=== PATIENT | female | born 1965 | race Caucasian/White ===

== ENCOUNTER 2018-06-01 09:20 | Day surgery (SDC) | payer BC ==
[~2018-06-01 09:20] MED LIST: Midazolam 1 MG/ML 2 ML SDV ONE; Propofol 200 MG/20 ML SDV ONE; fentaNYL 100 MCG/2 ML SDV ONE
[2018-06-01] MEDS ORDERED: Sodium Chloride 0.9% 1,000 ML IV SCH (09:45)
[2018-06-01 11:16] VITALS: BP 119/78
--- NOTE | 2018-06-01 12:04 | OR ---
DATE OF PROCEDURE: 06/01/2018 PROCEDURE: Colonoscopy. FINDINGS: Rectal polyp, approximately 1 cm, completely removed using hot snare. COMPLICATIONS: None. CONCILIATOR: None. PREOPERATIVE DIAGNOSIS: Screening colonoscopy. POSTOPERATIVE DIAGNOSIS: Screening colonoscopy. RISKS: Risks, benefits, alternatives, and limitations including, but not limited to infection, bleeding, and perforation were explained to the patient who wished to proceed. PROCEDURE IN DETAIL: The patient was placed in left lateral decubitus position. Digital rectal exam was performed without abnormality. The scope was introduced and advanced atraumatically to the ileocecal valve. A photo was taken. The scope was brought back to the ascending, transverse, descending colon, and retroflexed. The aforementioned polyps were identified and completely removed. No evidence of abnormal bleeding or any other masses or areas of concern. The patient tolerated the procedure well. José Manuel Swain MD /[id number]
== END 2018-06-01 11:29 | disposition home or self-care (01) ==
LOC: JP.SDS 09:20
PROVIDERS: ATTEND Surgery
DX: Z12.11 Encounter for screening for malignant neoplasm of colon (principal); D12.8 Benign neoplasm of rectum; I10 Essential (primary) hypertension; Z87.891 Personal history of nicotine dependence
CPT/HCPCS: 45385; 88305; J2250; J2704; J3010; J7030

== ENCOUNTER 2021-09-24 06:25 | Day surgery (SDC) | payer BC ==
[2021-09-24] MEDS ORDERED: Lactated Ringers 1,000 ML IV SCH (07:00)
[2021-09-24] MEDS ORDERED: Propofol 200 MG/20 ML SDV ONE (07:42)
[2021-09-24] MEDS ORDERED: Midazolam 1 MG/ML 2 ML SDV ONE (07:43)
[2021-09-24] MEDS ORDERED: fentaNYL 100 MCG/2 ML SDV ONE (07:43)
[2021-09-24 09:23] VITALS: BP 132/79; PULSE 80
== END 2021-09-24 09:30 | disposition home or self-care (01) ==
LOC: JP.SDS 06:25
PROVIDERS: ATTEND Family Medicine
DX: Z12.11 Encounter for screening for malignant neoplasm of colon (principal); I10 Essential (primary) hypertension; G47.33 Obstructive sleep apnea (adult) (pediatric); E66.01 Morbid (severe) obesity due to excess calories; Z86.010 Personal history of colon polyps; Z68.34 Body mass index [BMI] 34.0-34.9, adult
CPT/HCPCS: 45378; J2250; J2704; J3010; J7120

== ENCOUNTER 2023-01-31 18:38 | Emergency (ER) | payer BC ==
[2023-01-31] MEDS ORDERED: Ondansetron 4 MG/2 ML SDV IVPUSH ONE (19:39)
[2023-01-31] MEDS ORDERED: Sodium Chloride 0.9% 10 ML Syringe FLUSH PRN (19:39)
[2023-01-31] MEDS ORDERED: Sodium Chloride 0.9% 1,000 ML IV SCH (19:45)
[2023-01-31 19:54] LABS: BASOPHILS ABSOLUTE AUTO 0.04 K/uL (0.00-0.10); BASOPHILS PERCENT AUTO 0.7 % (0.1-1.3); EOSINOPHILS ABSOLUTE AUTO 0.22 K/uL (0.00-0.40); EOSINOPHILS PERCENT AUTO 3.7 % (0.0-5.4); HEMATOCRIT 36.2 % (34.3-46.0); HEMOGLOBIN 12.5 g/dL (11.2-15.5); IMMATURE GRAN PERCENT AUTO 0.2 % (0.0-0.7); LYMPHOCYTES PERCENT AUTO 25.6 % (11.4-47.7); MEAN CORPUSCULAR HEMOGLOBIN 31.1 pg (31.6-35.5); MEAN CORPUSCULAR HGB CONC 34.5 g/dL (31.6-35.5); MONOCYTES ABSOLUTE AUTO 0.47 K/uL (0.20-0.90); NEUTROPHILS ABSOLUTE AUTO 3.63 K/uL (1.0-7.6); NEUTROPHILS PERCENT AUTO 61.8 % (40.0-78.1); PLATELET COUNT,PLT 193 K/uL (130-375); RED BLOOD CELL COUNT 4.02 M/uL (3.77-5.24); WHITE BLOOD CELL COUNT,WBC 5.9 K/uL (3.2-11.0)
[2023-01-31 19:57] LABS: IMMATURE GRAN ABSOLUTE AUTO 0.01 K/uL (0.00-0.23)
[2023-01-31 20:04] LABS: APPEARANCE,URINE SLIGHTLY CLOUDY (CLEAR); BILIRUBIN,URINE NEGATIVE (NEGATIVE); COLOR,URINE YELLOW (YELLOW); GLUCOSE,URINE NEGATIVE (NEGATIVE); KETONES,URINE TRACE mg/dL (NEGATIVE); LEUKOCYTE ESTERASE,URINE NEGATIVE (NEGATIVE); NITRITE,URINE NEGATIVE (NEGATIVE); OCCULT BLOOD,URINE SMALL (NEGATIVE); PH,URINE 6.5 (5.0-8.0); PROTEIN,URINE NEGATIVE (NEGATIVE); UROBILINOGEN,URINE 0.2 EU/dL (0.2-1.0)
[2023-01-31 20:10] LABS: AMORPHOUS SEDIMENT,URINE NOT SEEN; BACTERIA,URINE FEW; EPITHELIAL CELLS,URINE MANY; MUCUS,URINE MANY; WBC,URINE 0-5 (0-5)
[2023-01-31 20:11] VITALS: BP 155/86; PULSE 65
[2023-01-31 20:14] LABS: ALANINE AMINOTRANSFERASE,ALT 56 U/L (12-78); ALBUMIN 3.7 g/dL (3.4-5.0); ALKALINE PHOSPHATASE 63 U/L (46-116); ASPARTATE AMNIOTRANSFERASE,AST 31 U/L (15-37); BILIRUBIN TOTAL 0.4 mg/dL (0.2-1.0); BLOOD UREA NITROGEN,BUN 14 mg/dL (7-18); C-REACTIVE PROTEIN 1.34 mg/dL (<0.50); CALCIUM 8.4 mg/dL (8.5-10.1); CARBON DIOXIDE,CO2 25 mmol/L (21-32); CHLORIDE,CL 99 mmol/L (100-108); CREATININE 0.7 mg/dL (0.6-1.0); EST CRCL DRUG DOSING (CG) 82.01 mL/min; ESTIMATED GFR 100 mL/min (>60); GLUCOSE RANDOM 104 mg/dL (74-106); POTASSIUM,K 3.2 mmol/L (3.6-5.2); PROTEIN TOTAL,TP 7.4 g/dL (6.4-8.2); SODIUM,NA 136 mmol/L (140-148)
[2023-01-31 20:15] LABS: ANION GAP 15.2 mmol/L (5.0-14.0)
[2023-01-31] MEDS ORDERED: Potassium Chloride 20 MEQ Tab.ER PO ONE (20:36)
== END 2023-01-31 21:09 | disposition home or self-care (01) ==
LOC: JP.ED 18:38
DX: R42 Dizziness and giddiness (principal); E86.0 Dehydration; E87.6 Hypokalemia; I10 Essential (primary) hypertension; Z90.49 Acquired absence of other specified parts of digestive tract; Z90.710 Acquired absence of both cervix and uterus; Z79.899 Other long term (current) drug therapy
CPT/HCPCS: 36415; 80053; 81001; 85025; 86140; 96361; 96374; 99284; A9270; J2405; J3490; J7030